=== PATIENT | male | born 1980 | race Caucasian/White ===

== ENCOUNTER 2018-07-07 18:31 | Emergency (ER) | payer OTHER ==
[~2018-07-07] VITALS: Ht 182.9 cm; Wt 117.3 kg
[2018-07-07] MEDS ORDERED: ALEV220C2 PO (18:38)
[2018-07-07] MEDS ORDERED: ATOR40TA75 PO (18:38)
[2018-07-07] MEDS ORDERED: LASI40TA9 PO (18:38)
[2018-07-07] MEDS ORDERED: TOPR100T13 PO (18:38)
[2018-07-07] MEDS ORDERED: LISI40TA PO (18:38)
[2018-07-07] MEDS ORDERED: AMBI10TA PO (18:38)
[2018-07-07] MEDS ORDERED: NORC7.5T35 PO (18:38)
[2018-07-07 18:43] VITALS: BP 180/103
[2018-07-07] MEDS ORDERED: NORCO 5/325MG TABLET (BULK FOR ED) PO ONE (19:00)
[2018-07-07] MEDS ORDERED: CYCLOBENZAPRINE 10 MG TAB PO ONE (19:00)
[2018-07-07] MEDS ORDERED: CYCL5TAB PO (19:05)
[2018-07-07] MEDS ORDERED: NORCOTAB PO (19:05)
== END 2018-07-07 19:11 | disposition home or self-care (01) ==
LOC: M ED 18:31
DX: G89.29 Other chronic pain (principal); M54.9 Dorsalgia, unspecified; S20.229A Contusion of unspecified back wall of thorax, initial encounter; W19.XXXA Unspecified fall, initial encounter; Y92.099 Unspecified place in other non-institutional residence as the place of occurrence of the external cause; Y93.9 Activity, unspecified; Y99.9 Unspecified external cause status; I10 Essential (primary) hypertension; Z72.0 Tobacco use; Z79.899 Other long term (current) drug therapy; Z88.5 Allergy status to narcotic agent